=== PATIENT | female | born 1965 | race Caucasian/White ===

== ENCOUNTER → 2017-10-10 | Outpatient (CLI) | payer BC ==
[~2017-10-10] MED LIST: ACHYD1T PO; ALPR1TAB2 PO; DCS100C PO; ESTR1TAB24 PO; HYDR-3454 PO; IBP800T PO; VENL37.52 PO
--- NOTE | 2017-10-12 15:54 | Diagnostic Imaging Report ---
INDICATION: Routine screening. COMPARISON: 02/27/2013. TECHNIQUE: 2D and 3D bilateral screening mammography was performed with CAD. FINDINGS: Scattered fibroglandular densities are identified bilaterally. There are scattered benign-appearing calcifications bilaterally. No mass or malignant appearing microcalcifications are seen. The axillae are unremarkable. IMPRESSION: No mammographic features suspicious for malignancy are identified. ACR BI-RADS Category 2: Benign findings. Result letter will be mailed to the patient. Note: At least 10% of breast cancer is not imaged by mammography. Dictated by: Dictated on workstation # [id number]
== END ==
LOC: RAD 10:33
PROVIDERS: ATTEND Nurse Practitioner Family
DX: Z12.31 Encounter for screening mammogram for malignant neoplasm of breast (principal)
CPT/HCPCS: 77067

== ENCOUNTER 2019-03-22 16:46 | Emergency (ER) | payer BC ==
[~2019-03-22] VITALS: Ht 165 cm; Wt 113.9 kg
[~2019-03-22 16:46] MED LIST changes: -HYDR-3454 PO; +HYDR-3455 PO
[2019-03-22] MEDS ORDERED: BUPIVACAINE 0.5% 30 ML (SENSORCAINE) VIAL INJ ONE (17:15)
[2019-03-22] MEDS ORDERED: LIDOCAINE/EPI 2% 1:100,00 (XYLOCAINE) 20 ML VIAL INJ ONE (17:15)
[2019-03-22] MEDS ORDERED: methylPREDNISolone 40 MG/ML (DEPO MEDROL) VIAL IA ONE (17:15)
[2019-03-22] MEDS ORDERED: KETOROLAC 60 MG/2 ML VIAL IM ONE (17:15)
--- NOTE | 2019-03-22 17:34 | ED Back Pain ---
General Chief Complaint: Back Problems Stated Complaint: L HIP PAIN Nursing Triage Note: Patient ambulatory to ER with spouse with complaint of lower back/ left hip pain x 5 weeks with worsening pain today. Patient states the pain radiates down the left leg and into the left groin area. She denies any falls. Patient denies any incontinence to urine or bowel. Nursing Sepsis Screen: No Definite Risk Source of Information: Patient Exam Limitations: No Limitations History of Present Illness Date Seen by Provider: Mar 22, 2019 Time Seen by Provider: 17:10 Initial Comments Patient presents to ER by private conveyance with chief complaint for the past several days she's had pain in her low back radiating down her left buttock into the middle of her left thigh posteriorly. She's never had sciatica before but she has had occasional back pain treated with Aleve and Tylenol. She's been using Aleve and Tylenol but she says she has to walk on it for very long hurts very much is hard for her to do her job. She works as an EMT. She has never had her back hurt bed not to have it worked up. No surgeries. No significant medical history. No cardiac or kidney disease. She's having no weakness, numbness, falls, giving way or incontinence of bowel or bladder. No saddle anesthesia. Allergies and Home Medications Allergies Coded Allergies: nickel (Unverified Allergy, Unknown, RASH, 04/16/15) midazolam (Verified Adverse Reaction, Unknown, GIVES HER MEMORY LOSS FOR WEEKS, 04/21/15) Home Medications Alprazolam 1 Mg Tablet, 1 MG PO TID PRN for ANXIETY, (Reported) Hydrocodone/Acetaminophen 1 Each Tablet, 1 EACH PO Q4H PRN for ABDOMINAL PAIN Prescribed by: CRAIG MORELOS on 04/28/15 1405 Venlafaxine HCl 37.5 Mg Cap.er.24h, 37.5 MG PO BID, (Reported) Patient Home Medication List Home Medication List Reviewed: Yes Review of Systems Constitutional: No chills, No diaphoresis EENTM: No ear discharge, No ear pain Respiratory: No cough, No short of breath Cardiovascular: No chest pain, No edema Gastrointestinal: No abdominal pain, No nausea, No vomiting Genitourinary: No discharge, No dysuria Musculoskeletal: see HPI, back pain; No joint pain Skin: No pruritus, No rash Past Vptzywq-Wzklgh-Yxacqj Hx Patient Social History Alcohol Use: Denies Use Recreational Drug Use: No Smoking Status: Never a Smoker 2nd Hand Smoke Exposure: No Recent Foreign Travel: No Contact w/Someone Who Travel: No Recent Infectious Disease Expo: No Recent Hopitalizations: No Physical Abuse: No Sexual Abuse: No Mistreated: No Fear: No Immunizations Up To Date Date of Pneumonia Vaccine: Dec 25, 2011 Seasonal Allergies Seasonal Allergies: No Past Medical History Surgeries: Yes (C/S X3, UTERINE ABLATION, RIGHT CTR) Section, Gallbladder, Hysterectomy, Orthopedic, Tonsillectomy Respiratory: No (had sleep study last week, mild sleep apnea, ) Cardiac: No Neurological: No Reproductive Disorders: No Gastrointestinal: Yes Gall Bladder Disease Musculoskeletal: No Endocrine: No Cancer: No Psychosocial: Yes Anxiety, Depression Integumentary: No Blood Disorders: No Family Medical History No Pertinent Family Hx Physical Exam Vital Signs Vital Signs - First Documented 03/22/19 17:00 Temp 36.8 Pulse 77 Resp 16 B/P (MAP) 128/86 (100) Pulse Ox 98 O2 Delivery Room Air Capillary Refill : Less Than 3 Seconds Height, Weight, BMI Height: 5'5" Weight: 230lbs. oz. 104.009101rk; 41.00 BMI Method:Stated General Appearance: No Apparent Distress, WD/WN HEENT: PERRL/EOMI, Pharynx Normal, Moist Mucous Membranes Neck: Full Range of Motion, Normal Inspection Cardiovascular: Regular Rate, Rhythm, No Edema, Normal Peripheral Pulses Respiratory: Lungs Clear, Normal Breath Sounds, No Accessory Muscle Use, No Respiratory Distress Peripheral Pulses: 2+ Radial Pulses (R), 2+ Radial Pulses (L) Gastrointestinal: Normal Bowel Sounds, Non Tender, Soft Back: Normal Inspection, No Vertebral Tenderness, Other (left paravertebral tenderness) Extremity: Normal Capillary Refill, Normal Inspection, Normal Range of Motion Neurologic/Psychiatric: Alert, Oriented x3, No Motor/Sensory Deficits, Normal Mood/Affect, Other (antalgic gait) Skin: Normal Color, Warm/Dry Procedures/Interventions Progress Clean the site with chlorhexidine and then using the Z track method and a 1-1/2 inch 25-gauge needle we put 40 mg of Depo-Medrol, 2 mL of half percent bupivacaine and 2 mL of 2% lidocaine with epinephrine in the L5-S1 facet joint and surrounding area. Patient tolerated this procedure well. A bandage was placed over the wound. Progress/Results/Core Measures Results/Orders My Orders Orders - JOSEPH TENA Ketorolac Injection (Toradol Injection) (03/22/19 17:15) Lidocaine/Epi 2% 1:100,000 (Xylocaine/Ep (03/22/19 17:15) Bupivacaine 0.5% Injection (Sensorcaine (03/22/19 17:15) Methylprednisolone Acetate Inj (Depo-Med (03/22/19 17:15) Medications Given in ED Current Medications Medications Dose Ordered Sig/Benito Route Start Time Stop Time Status Last Admin Dose Admin Ketorolac Tromethamine 60 mg ONCE ONCE IM 03/22/19 17:15 03/22/19 17:18 DC 03/22/19 17:22 60 MG Methylprednisolone Acetate 40 mg ONCE ONCE IA 03/22/19 17:15 03/22/19 17:18 DC 03/22/19 17:24 40 MG Vital Signs/I&O 03/22/19 17:00 Temp 36.8 Pulse 77 Resp 16 B/P (MAP) 128/86 (100) Pulse Ox 98 O2 Delivery Room Air Blood Pressure Mean: 100 Progress Progress Note : Time: 17:31 Progress Note Tenderness reproducible to direct palpation over sciatic nerve at the level of the L5-S1 facet joint. Discussed risks, benefits and alternatives to doing an injection with steroids. She has already trial NSAIDs. We'll give her a shot of Toradol, Depo-Medrol, bupivacaine, lidocaine with epinephrine. She has agreed to do this. Departure Impression Primary Impression: Lumbago with sciatica, left side Qualified Codes: M54.42 - Lumbago with sciatica, left side Disposition: 01 HOME, SELF-CARE Condition: Stable Departure-Patient Inst. Decision time for Depature: 17:33 Referrals: ROBERTO WONG MD (PCP/Family) Primary Care Physician Patient Instructions: Sciatica Exercises, Sciatica (DC) Add. Discharge Instructions: Drink plenty of fluids. Tylenol 1000 mg every 8 hours for pain. Aleve 2 tablets twice a day for the next couple weeks on a scheduled basis. If not seeing results in 1-2 weeks follow-up with your primary care provider to discuss more aggressive treatment. Return to the ER if you begin to have numbness, weakness, loss of control of bowel or bladder. All discharge instructions reviewed with patient and/or family. Voiced understanding. JOSEPH TENA Mar 22, 2019 17:34
[2019-03-22 17:42] VITALS: BP 128/86
== END 2019-03-22 17:42 | disposition home or self-care (01) ==
LOC: EDUNIT# 16:46 → ER 16:47
DX: M54.42 Lumbago with sciatica, left side (principal); F41.9 Anxiety disorder, unspecified; F32.9 Major depressive disorder, single episode, unspecified; Z88.8 Allergy status to other drugs, medicaments and biological substances; Z90.710 Acquired absence of both cervix and uterus; Z90.89 Acquired absence of other organs
CPT/HCPCS: 96372; 99284

== ENCOUNTER → 2019-11-06 | Outpatient (CLI) | payer BC | LOC: LABNPT 07:14 | PROVIDERS: ATTEND Family Medicine | DX: R05 Cough (principal); R06.00 Dyspnea, unspecified; Z20.828 Contact with and (suspected) exposure to other viral communicable diseases ==

== ENCOUNTER → 2020-02-27 | Outpatient (CLI) | payer BC ==
--- NOTE | 2020-02-27 12:50 | Diagnostic Imaging Report ---
INDICATION: DYSPNEA. TECHNIQUE: Two view chest 12:36 PM CORRELATION STUDY: None FINDINGS: The heart size, mediastinal configuration and pulmonary vasculature are within normal limits. The lungs are clear with no consolidating infiltrate. Asymmetric elevation right diaphragm. There is no significant pleural effusion or pneumothorax. Visualized osseous structures are unremarkable. IMPRESSION: 1. Negative for acute abnormality of the chest. Dictated by: Dictated on workstation # [id number]
== END ==
LOC: RAD 12:15
PROVIDERS: ATTEND Nurse Practitioner Family
DX: R06.00 Dyspnea, unspecified (principal)
CPT/HCPCS: 71046

== ENCOUNTER → 2020-02-27 | Outpatient (CLI) | payer BC | LOC: LAB 13:37 | PROVIDERS: ATTEND Nurse Practitioner Family | DX: R06.00 Dyspnea, unspecified (principal) | CPT/HCPCS: 36415; 85379 ==

== ENCOUNTER 2021-08-11 13:48 | Emergency (ER) | payer BC ==
[~2021-08-11] VITALS: Ht 165.1 cm; Wt 155.7 kg
[2021-08-11] MEDS ORDERED: NITROGLYCERIN 0.4 MG SL TABS BTL 25'S SL ONE (14:00)
[2021-08-11] MEDS ORDERED: ASPIRIN 81 MG CHEW (CHILDREN'S ASA) PO ONE (14:00)
--- NOTE | 2021-08-11 14:04 | ED Chest Pain ---
General Chief Complaint: Chest Pain Stated Complaint: CHEST PAIN Source: patient Exam Limitations: no limitations (GEORGE URIBE) History of Present Illness Date Seen by Provider: August 11, 2021 Time Seen by Provider: 14:01 Initial Comments Patient is a 56-year-old female who presents ED chest pain. Sharp chest pain started 2 to 3 weeks ago. Pain is intermittent. Pain has been constant since last night. Substernal with sharp chest pain without radiation since today to the back. Associated shortness of breath. Intermittent nausea and not associate with the pain over the past 2 or 3 weeks. No known history of coronary artery disease, CHF, diabetes, smoking. History of hypertension, dysl ipidemia and family cardiac history. States she had a stress test many years ago. Denies any trauma, headache, dizziness, visual changes, abdominal pain, dysuria, hematuria. Pain is not associate with exertion (GEORGE URIBE) Allergies and Home Medications Allergies Coded Allergies: nickel (Unverified Allergy, Unknown, RASH, 04/16/15) midazolam (Verified Adverse Reaction, Unknown, GIVES HER MEMORY LOSS FOR WEEKS, 04/21/15) Patient Home Medication List Home Medication List Reviewed: Yes (GEORGE URIBE) Alprazolam (Xanax) 1 Mg Tablet, 1 MG PO TID PRN for ANXIETY, (Reported) Entered as Reported by: TERRY VICK on 04/21/15 1346 Hydrocodone/Acetaminophen (Vicodin 5-300 mg Tablet) 1 Each Tablet, 1 EACH PO Q4H PRN for ABDOMINAL PAIN Prescribed by: CRAIG MORELOS on 04/28/15 1405 Venlafaxine HCl (Effexor Xr) 37.5 Mg Cap.er.24h, 37.5 MG PO BID, (Reported) Entered as Reported by: TERRY VICK on 04/21/15 1346 Review of Systems Review of Systems Constitutional: No chills, No diaphoresis, No fever, No malaise EENTM: No Double Vision, No Eye Pain, No Mouth Pain, No Mouth Swelling Respiratory: Denies Cough, Denies Orthopnea; Shortness of Air; Denies SOA at Rest Cardiovascular: Chest Pain; Denies Edema Gastrointestinal: Denies Abdominal Pain, Denies Diarrhea; Nausea; Denies Vomiting Genitourinary: Denies Burning, Denies Discharge Musculoskeletal: No back pain, No joint pain Skin: No change in color, No change in hair/nails (GEORGE URIBE) All Other Systems Reviewed Negative Unless Noted: Yes (GEORGE URIBE) Past Ipgtsun-Lvivml-Vjhfzc Hx Patient Social History Tobacco Use?: No Substance use?: No Alcohol Use?: Yes Alcohol Frequency: Rarely Pt feels they are or have been: No (GEORGE URIBE) Seasonal Allergies Seasonal Allergies: No (GEORGE URIBE) Past Medical History Surgeries: Yes (C/S X3, UTERINE ABLATION, RIGHT CTR) Section, Gallbladder, Hysterectomy, Orthopedic, Tonsillectomy Respiratory: No (had sleep study last week, mild sleep apnea, ) Cardiac: No Neurological: No Reproductive Disorders: No Gastrointestinal: Yes Gall Bladder Disease Musculoskeletal: No Endocrine: No Cancer: No Psychosocial: Yes Anxiety, Depression Integumentary: No Blood Disorders: No (GEORGE URIBE) Family Medical History No Pertinent Family Hx (GEORGE URIBE) Physical Exam Vital Signs Vital Signs - First Documented 08/11/21 13:50 Temp 35.9 Pulse 77 Resp 21 B/P (MAP) 153/94 (113) Pulse Ox 96 O2 Delivery Room Air (RAFAEL TOBIAS MD) Vital Signs Capillary Refill : (GEORGE URIBE) Height, Weight, BMI Height: 5'5" Weight: 230lbs. oz. 104.322141zg; 41.00 BMI Method:Stated General Appearance: No Apparent Distress, WD/WN HEENT: PERRL/EOMI, TMs Normal, Normal ENT Inspection, Pharynx Normal Neck: Full Range of Motion, Normal Inspection, Non Tender, Supple Respiratory: Chest Non Tender, Lungs Clear, Normal Breath Sounds, No Accessory Muscle Use Cardiovascular: Regular Rate, Rhythm, No Edema, No Gallop, No JVD Gastrointestinal: Normal Bowel Sounds, No Organomegaly, No Pulsatile Mass, Non Tender Skin: Normal Color (GEORGE URIBE) Progress/Results/Core Measures Results/Orders Lab Results Laboratory Tests Test 08/11/21 13:58 08/11/21 16:58 Range/Units White Blood Count 7.6 4.3-11.0 10^3/uL Red Blood Count 4.74 3.80-5.11 10^6/uL Hemoglobin 13.3 11.5-16.0 g/dL Hematocrit 40 35-52 % Mean Corpuscular Volume 85 80-99 fL Mean Corpuscular Hemoglobin 28 25-34 pg Mean Corpuscular Hemoglobin Concent 33 32-36 g/dL Red Cell Distribution Width 12.8 10.0-14.5 % Platelet Count 263 130-400 10^3/uL Mean Platelet Volume 10.8 9.0-12.2 fL Immature Granulocyte % (Auto) 0 % Neutrophils (%) (Auto) 56 42-75 % Lymphocytes (%) (Auto) 31 12-44 % Monocytes (%) (Auto) 11 0-12 % Eosinophils (%) (Auto) 2 0-10 % Basophils (%) (Auto) 0 0-10 % Neutrophils # (Auto) 4.2 1.8-7.8 10^3/uL Lymphocytes # (Auto) 2.4 1.0-4.0 10^3/uL Monocytes # (Auto) 0.8 0.0-1.0 10^3/uL Eosinophils # (Auto) 0.1 0.0-0.3 10^3/uL Basophils # (Auto) 0.0 0.0-0.1 10^3/uL Immature Granulocyte # (Auto) 0.0 0.0-0.1 10^3/uL Prothrombin Time 12.8 12.2-14.7 SEC INR Comment 0.9 0.8-1.4 Activated Partial Thromboplast Time 30 24-35 SEC D-Dimer 0.42 0.00-0.49 UG/ML Sodium Level 139 135-145 MMOL/L Potassium Level 4.1 3.6-5.0 MMOL/L Chloride Level 107 98-107 MMOL/L Carbon Dioxide Level 20 L 21-32 MMOL/L Anion Gap 12 5-14 MMOL/L Blood Urea Nitrogen 17 7-18 MG/DL Creatinine 0.78 0.60-1.30 MG/DL Estimat Glomerular Filtration Rate 90 BUN/Creatinine Ratio 22 Glucose Level 107 H 70-105 MG/DL Calcium Level 9.4 8.5-10.1 MG/DL Corrected Calcium 9.4 8.5-10.1 MG/DL Magnesium Level 2.0 1.6-2.4 MG/DL Total Bilirubin 0.3 0.1-1.0 MG/DL Aspartate Amino Transf (AST/SGOT) 23 5-34 U/L Alanine Aminotransferase (ALT/SGPT) 28 0-55 U/L Alkaline Phosphatase 75 40-136 U/L Myoglobin 29.7 10.0-92.0 NG/ML Troponin I < 0.028 < 0.028 <0.028 NG/ML B-Type Natriuretic Peptide 24.2 <100.0 PG/ML Total Protein 6.9 6.4-8.2 GM/DL Albumin 4.0 3.2-4.5 GM/DL Lipase 32 8-78 U/L (RAFAEL TOBIAS MD) Medications Given in ED Current Medications Medications Dose Ordered Sig/Benito Route Start Time Stop Time Status Last Admin Dose Admin Aspirin 324 mg ONCE ONCE PO 08/11/21 14:00 08/11/21 14:02 DC 08/11/21 14:13 324 MG Nitroglycerin 0.4 mg ONCE ONCE SL 08/11/21 14:00 08/11/21 14:02 DC 08/11/21 14:13 0.4 MG (RAFAEL TOBIAS MD) Vital Signs/I&O 08/11/21 08/11/21 13:50 18:14 Temp 35.9 Pulse 77 62 Resp 21 12 B/P (MAP) 153/94 (113) 155/92 Pulse Ox 96 O2 Delivery Room Air Room Air (RAFAEL TOBIAS MD) Comment Sinus rhythm, incomplete right bundle branch block, 75 bpm, QRS duration 106 MS, QTc 422 MS. (GEORGE URIBE) Departure Communication (PCP) Patient presents ED with substernal chest pain. Started 2 to 3 weeks ago. She has some radiation to the back today. Patient on arrival slightly hypertensive 153/94. She is not tachycardic or hypoxic. No recent cough. No worsening pain with eating. History of cholecystectomy. No history of pancreatitis. EKG sinus rhythm with incomplete right bundle branch block without evidence of ST elevation, depression, arrhythmia.. No diffuse ST elevation suggesting pericarditis. She has no upper abdominal tenderness. Initial troponin,BNP, and D-dimer negative. Equal blood pressure bilateral upper extremities. Chest x- ray was negative for pneumonia, pneumothorax or mediastinal widening suggesting aortic dissection. Patient with normal lipase, liver enzymes and normal white blood count. She was given sublingual nitro with improvement of pain here. She does have a history of family cardiac history history, hypertension and dyslipidemia. Concerning that the nitro did help with the pain. She was having some discomfort here with radiation to back. Refused any narcotics secondary to driving. She was given 3 sublingual nitro with improvement. Heart score 3. I did recommend admission for observation due to the chest pain and cardiac evaluation. . Patient refused. She has appointment tomorrow with her primary care physician. She does have a history of ulcer disease which could be is associated with her pain. Discussed EGD if cardiac work-up. If pain causeing her to wake up in the middle of the night or worse with eating may consider Tums, or a PPI. According to staff patient was upset with her care. Discussed with patient reassuring that the troponins were negative throughout this time of her chest pain. I do strongly recommend cardiac work-up. she acknowledges. Ibrahima Fritz cardiology follow-up. Strongly recommend returning back to ED for further evaluation (GEORGE URIBE) Impression Primary Impression: Chest pain Disposition: 01 HOME, SELF-CARE Condition: Stable Departure-Patient Inst. Decision time for Depature: 18:08 (GEORGE URIBE) Referrals: ROBERTO WONG MD (PCP/Family) Primary Care Physician CR FRITZ MD Patient Instructions: Chest Pain (DC) Add. Discharge Instructions: Consider taking baby aspirin 81 mg daily. Follow-up with your primary care physician tomorrow. If any worsening symptoms return back to ED for further evaluation All discharge instructions reviewed with patient and/or family. Voiced understanding. Work/School Note: Work Release Form Date Seen in the Emergency Department: August 11, 2021 Return to Work: August 14, 2021 ATTENDING PHYSICIAN NOTE: I was physically present as attending physician in the emergency department during the care of this patient, but I was not directly involved in the decision making or delivery of care for this patient. (RAFAEL TOBIAS MD) GEORGE URIBE August 11, 2021 14:03 RAFAEL TOBIAS MD August 11, 2021 20:07
--- NOTE | 2021-08-11 14:18 | Diagnostic Imaging Report ---
INDICATION: Chest pain. COMPARISON: 02/27/2020. FINDINGS: The right diaphragm is elevated, chronic. The lungs are clear. No failure, effusion, or pneumothorax. IMPRESSION: No acute appearing abnormality. Dictated by: Dictated on workstation # [id number]
[2021-08-11 14:25] LABS: BASOPHILS % (AUTO) 0 % (0-10); EOSINOPHILS # (AUTO) 0.1 10^3/uL (0.0-0.3); EOSINOPHILS % (AUTO) 2 % (0-10); HEMATOCRIT 40 % (35-52); HEMOGLOBIN 13.3 g/dL (11.5-16.0); LYMPHOCYTES # (AUTO) 2.4 10^3/uL (1.0-4.0); LYMPHOCYTES % (AUTO) 31 % (12-44); MEAN CORPUSCULAR HEMOGLOBIN 28 pg (25-34); MEAN CORPUSCULAR HGB CONC 33 g/dL (32-36); MEAN CORPUSCULAR VOLUME 85 fL (80-99); MEAN PLATELET VOLUME 10.8 fL (9.0-12.2); MONOCYTES # (AUTO) 0.8 10^3/uL (0.0-1.0); MONOCYTES % (AUTO) 11 % (0-12); NEUTROPHILS # (AUTO) 4.2 10^3/uL (1.8-7.8); NEUTROPHILS % (AUTO) 56 % (42-75); PLATELET COUNT 263 10^3/uL (130-400); WHITE BLOOD COUNT 7.6 10^3/uL (4.3-11.0)
[2021-08-11 14:35] LABS: POTASSIUM 4.1 MMOL/L (3.6-5.0)
[2021-08-11 14:36] LABS: CALCIUM 9.4 MG/DL (8.5-10.1); INR 0.9 (0.8-1.4); PROTHROMBIN TIME PATIENT 12.8 SEC (12.2-14.7)
[2021-08-11 14:38] LABS: TOTAL PROTEIN 6.9 GM/DL (6.4-8.2)
[2021-08-11 14:39] LABS: BILIRUBIN,TOTAL 0.3 MG/DL (0.1-1.0)
[2021-08-11 14:41] LABS: CREATININE SERUM 0.78 MG/DL (0.60-1.30)
[2021-08-11] MEDS ORDERED: NS IV 1000 ML 1,000 ML IV STA (15:13)
[2021-08-11] MEDS ORDERED: morphine INJ 10 MG/ML 1ML (SYR OR VIAL) IM ONE (15:15)
[2021-08-11 18:14] VITALS: BP 155/92
== END 2021-08-11 18:14 | disposition home or self-care (01) ==
LOC: EDUNIT# 13:48 → ER 13:49
DX: R07.89 Other chest pain (principal)
CPT/HCPCS: 36415; 71045; 80053; 83690; 83735; 83874; 83880; 84484; 85025; 85379; 85610; 85730; 93005; 93041